=== PATIENT | male | born 1945 | race Caucasian/White ===

== ENCOUNTER 2018-08-04 12:34 | Emergency (ER) | payer MEDICARE ==
[2018-08-04] MEDS ORDERED: IPRATROPIUM/ALBUTEROL (0.5MG/3MG) NEB INH ONE ×2 (13:16→13:37)
--- NOTE | 2018-08-04 13:25 | Emergency Department Record ---
History of Present Illness - General Chief Complaint: Shortness of breath Stated Complaint: BENJAMIN Time Seen by Provider: 08/04/18 13:08 Source: Patient Mode of Arrival: Ambulatory Limitations: No limitations - History of Present Illness Initial Comments: The patient is here with a 3-4 day hx of cough, congestion, and SOB. He states he does have chest squeezing when coughing at times but no CP at rest. The patient also has felt feverish and has had colored sputum. He has a hx of COPD may have had a low biox at home. MD Complaint: Cough Onset/Timin -: Days(s) Improves With: Rest Worsens With: Exertion, Movement Known History Of: COPD Associated Symptoms: Cough, Fever, Orthopnia Treatments Prior to Arrival: Bronchodilator - Related Data Home Medications Medication Instructions Recorded Confirmed Last Taken Albuterol Sulfate [Proair Hfa] 1 - 2 puff IH .EVERY 4-6 HOURS PRN 08/04/1808/0408/04/18 Aspirin [Aspir-Low] 81 mg PO DAILY 08/04/18 08/04/18 Unknown Duloxetine HCl [Cymbalta] 60 mg PO DAILY 08/04/18 08/04/18 Unknown Gabapentin [Neurontin] 600 mg PO BID 08/04/18 08/04/18 Unknown Metformin HCl 1,000 mg PO BID 08/04/18 08/04/18 Unknown Omeprazole 40 mg PO DAILY 08/04/18 08/04/18 Unknown Rosuvastatin Calcium [Crestor] 40 mg PO DAILY 08/04/18 08/04/18 Unknown Trazodone HCl 50 mg PO QHS 08/04/18 08/04/18 Unknown Previous Rx's Medication Instructions Recorded Levofloxacin [Levaquin] 750 mg PO DAILY #4 tab 08/04/18 Prednisone [Prednisone 20Mg] 40 mg PO DAILY #8 tab 08/04/18 Allergies Allergy/AdvReac Type Severity Reaction Status Date / Time dantrolene [From Dantrium] Allergy pleural Verified 08/04/18 12:55 effusion Iodinated Contrast- Oral and Allergy flushed Verified 08/04/18 12:55 IV Dye Travel Screening - Travel/Exposure Within Last 30 Days Have you traveled within the last 30 days?: No Review of Systems Constitutional: Reports: Malaise. Denies: Chills, Fever Eyes: Denies: Eye discharge ENT: Reports: Congestion Respiratory: Reports: Cough, Dyspnea. Denies: Hemoptysis Cardiovascular: Denies: Arrhythmia, Chest pain Endocrine: Reports: Fatigue Gastrointestinal: Denies: Nausea Genitourinary: Denies: Dysuria Musculoskeletal: Denies: Arthralgia Skin: Denies: Bruising Past Medical History - SOCIAL HISTORY Smoking Status: Current every day smoker Alcohol Use: None Drug Use: None - RESPIRATORY Hx Respiratory Disorders: Yes Hx COPD: Yes - CARDIOVASCULAR Hx Cardio Disorders: Yes Comment:: high cholesterol - NEURO Hx Neuro Disorders: Yes Hx Neuropathy: Yes Comment:: MS - GI Hx GI Disorders: No - Hx Genitourinary Disorders: No - ENDOCRINE Hx Endocrine Disorders: Yes Hx Diabetes: Yes - MUSCULOSKELETAL Hx Musculoskeletal Disorders: No - PSYCH Hx Psych Problems: No - HEMATOLOGY/ONCOLOGY Hx Hematology/Oncology Disorders: No Family Medical History Any Significant Family History?: Yes Hx Cancer: Father, Brother/Sister Hx Resp Disorders: Brother/Sister Physical Exam - General General Appearance: Alert, Oriented x3, Cooperative, No acute distress - Head Head exam: Atraumatic, Normocephalic, Normal inspection - Eye Eye exam: Normal appearance, PERRL, EOMI - ENT Throat exam: Normal inspection. negative: Tonsillar erythema, Tonsillar exudate - Neck Neck exam: Normal inspection, Full ROM. negative: Tenderness - Respiratory Respiratory exam: Wheezes (in all lung amezcua.). negative: Normal lung sounds bilaterally, Accessory muscle use, Chest wall tenderness, Respiratory distress - Cardiovascular Cardiovascular Exam: Regular rate, Normal rhythm, Normal heart sounds. negative : Diastolic murmur, Systolic murmur - Extremities Extremities exam: Normal inspection, Full ROM, Normal capillary refill. negative: Tenderness - Neurological Neurological exam: Alert, Normal gait. negative: Abnormal gait, Motor sensory deficit - Psychiatric Psychiatric exam: negative: Anxious Course Vital Signs 08/04/18 12:47 Temperature 97.8 F Pulse Rate 89 Respiratory 24 Rate Blood Pressure 127/75 Pulse Ox 95 - Reevaluation(s) Reevaluation #1: The patient is doing a lot better at this time. He states his breathing is improved after the Neb treatments and steroids. We will treat the patient for possible pneumonia due to his symptoms and will have the patient F/U with his PCP later this week. He is to return to the ER for any worsening symptoms. On exam he does have better aeration of his lungs and his RA biox is 95-98%. 08/04/18 15:01 Medical Decision Making - Data Complexity MDM Data: Labs Ordered and/or Reviewed, X-Ray Ordered and/or Reviewed, EKG Ordered and/or Reviewed - Lab Data Result diagrams: 08/04/18 13:10 08/04/18 13:10 - EKG Data -: EKG Interpreted by Me EKG: No Acute Changes, Normal EKG - Radiology Data Radiology results: Report reviewed (CXR: Neg. possible early infiltrate R lung base vs prob atelectasis.) Disposition Disposition: Discharge Clinical Impression: COPD exacerbation Disposition: Home, Self-Care Condition: (2) Stable Instructions: Dyspnea (ED) Additional Instructions: Please continue your present medicines and add the Levaquin and Prednisone. Please see your family doctor later this week for recheck and return to the ER for any worsening symptoms. Prescriptions: Levofloxacin [Levaquin] 750 mg PO DAILY #4 tab Prednisone [Prednisone 20Mg] 40 mg PO DAILY #8 tab Forms: Patient Portal Access Time of Disposition: 15:05 Quality - Quality Measures Quality Measures: N/A - Blood Pressure Screening View Details: Yes Does Patient Have Any of the Following: No Blood Pressure Classification: Pre-Hypertensive BP Reading Systolic Measurement: 127 Diastolic Measurement: 75 Screening for High Blood Pressure: < Pre-Hypertensive BP, F/U Documented > [ [id number]] Pre-Hypertensive Follow-up Interventions: Referral to alternative/primary care provider.
[2018-08-04] MEDS ORDERED: METHYLPREDNISOLONE PF 125MG/VIAL IVP ONE (13:37)
[2018-08-04] MEDS ORDERED: ALBUTEROL SULFATE (0.083%) 2.5 MG/3 ML NEB INH ONE (13:43)
[2018-08-04 13:45] LABS: BASO % 0.6 % (0-6); EOS % 0.1 % (0-6); GRAN % 45.1 % (47-80); HEMATOCRIT 38.6 % (42.0-52.0); HEMOGLOBIN 13.4 gm/dl (14.0-18.0); LYMPH % 39.8 % (16-45); MEAN CELL VOLUME 95.5 fl (81-97); MEAN CORPUSCULAR HGB CONC 34.7 g/dl (32-36); MEAN PLATELET VOLUME 8.8 fl (7.4-10.4); MONO % 14.4 % (0-9); PLATELET COUNT 296 K/uL (130-400); RED BLOOD COUNT 4.04 M/uL (4.40-5.70); RED CELL DISTRIBUTION WIDTH 13.8 % (11.5-14.5)
[2018-08-04 13:55] LABS: BLOOD UREA NITROGEN 13 mg/dL (8-23); CREATININE 1.1 mg/dL (0.7-1.2); EST GLOMERULAR FILTRATION RATE > 60 mL/min
[2018-08-04 13:56] LABS: TOTAL PROTEIN 8.1 g/dL (6.6-8.7)
[2018-08-04 13:58] LABS: GLUCOSE,RANDOM 98 mg/dL (74-109)
[2018-08-04 14:00] LABS: MEAN CORPUSCULAR HEMOGLOBIN 33.1 pg (27-33)
[2018-08-04 14:01] LABS: ALBUMIN 4.1 g/dL (4.0-5.0); ALKALINE PHOSPHATASE 87 U/L (40-129); ALT/SGPT 19 U/L (<41); AST/SGOT 23 U/L (10.0-50.0)
[2018-08-04] MEDS ORDERED: LEVOFLOXACIN 500 MG TABLET PO ONE (14:38)
== END 2018-08-04 15:13 | disposition home or self-care (01) ==
LOC: ER 12:34
DX: J44.1 Chronic obstructive pulmonary disease with (acute) exacerbation (principal); R07.89 Other chest pain; F17.210 Nicotine dependence, cigarettes, uncomplicated; E11.9 Type 2 diabetes mellitus without complications; Z79.84 Long term (current) use of oral hypoglycemic drugs
CPT/HCPCS: 71046; 80053; 84484; 85025; 93005; 93010; 94640; 96374; 99284; J2930; J7613